=== PATIENT | female | born 1935 | race Two or more races ===

== ENCOUNTER → 2022-07-19 | Outpatient (CLI) | payer OTHER | END | disposition home or self-care (01) | LOC: SONOGRAMA 09:08 | PROVIDERS: ATTEND Specialist | DX: I70.0 Atherosclerosis of aorta (principal); K80.62 Calculus of gallbladder and bile duct with acute cholecystitis without obstruction ==

== ENCOUNTER 2022-08-04 10:43 | Outpatient (CLI) | payer OTHER | END 2022-08-04 10:53 | disposition home or self-care (01) | LOC: TOM 10:43 | PROVIDERS: ATTEND Specialist | DX: I63.89 Other cerebral infarction (principal) ==

== ENCOUNTER 2022-12-25 16:21 | Emergency (ER) | payer OTHER ==
[~2022-12-25] VITALS: Ht 154.9 cm; Wt 61.2 kg
[2022-12-25] MEDS ORDERED: AVAPRO150 MG (16:31)
== END 2022-12-25 20:31 | disposition home or self-care (01) ==
LOC: ER 16:21
DX: J06.9 Acute upper respiratory infection, unspecified (principal); Z20.822 Contact with and (suspected) exposure to COVID-19